=== PATIENT | female | born 1980 | race Caucasian/White ===

== ENCOUNTER 2018-10-15 13:10 | Emergency (ER) | payer BC, OTHER ==
[2018-10-15] MEDS ORDERED: ONDANSETRON HCL INJ/PF 4 MG/2 ML SDV IV ONE ×2 (14:50→19:42)
--- NOTE | 2018-10-15 14:51 | ER Document Report ---
ED Medical Screen (RME) - General Chief Complaint: Abdominal Pain Stated Complaint: ABDOMINAL PAIN Time Seen by Provider: 10/15/18 14:49 Primary Care Provider: DIAZ MEZA [Primary Care Provider] - Follow up as needed Mode of Arrival: Medic Information source: Patient Notes: Patient presents complaining of left lower quadrant abdominal pain that radiates to the back for the past 2 days. Patient does complain of nausea. Patient denies any vomiting. Patient without any history of constipation. Patient states she has a history of intussusception which was not repaired surgically and states that her pain feels similar to when she had this in April of last year. I have greeted and performed a rapid initial assessment of this patient. A comprehensive ED assessment and evaluation of the patient, analysis of test results and completion of the medical decision making process will be conducted by additional ED providers. TRAVEL OUTSIDE OF THE [place] IN LAST 30 DAYS: No - Related Data Allergies/Adverse Reactions: Sulfa (Sulfonamide Antibiotics) Allergy (Verified 10/15/18 13:12) Physical Exam - Vital signs Vitals: Temp Pulse Resp BP Pulse Ox 98.8 F 92 16 127/80 H 99 10/15/18 13:29 10/15/18 13:29 10/15/18 13:29 10/15/18 13:29 10/15/18 13:29 - Abdominal Tenderness: Tender - Left lower pelvic tenderness Course - Vital Signs Vital signs: Temp Pulse Resp BP Pulse Ox 98.8 F 92 16 127/80 H 99 10/15/18 13:29 10/15/18 13:29 10/15/18 13:29 10/15/18 13:29 10/15/18 13:29 Doctor's Discharge - Discharge Referrals: DIAZ MEZA [Primary Care Provider] - Follow up as needed
[2018-10-15] MEDS ORDERED: FENTANYL CITRATE INJ/PF 100 MCG/2 ML AMPUL IV ONE ×2 (15:13→19:24)
[2018-10-15 15:46] LABS: ABSOLUTE BASOPHILS # (AUTO) 0.1 10^3/uL (0.0-0.2); ABSOLUTE LYMPHOCYTES (AUTO) 1.6 10^3/uL (0.5-4.7); ABSOLUTE MONOCYTES (AUTO) 0.4 10^3/uL (0.1-1.4); ABSOLUTE NEUT (AUTO) 5.9 10^3/uL (1.7-8.2); BASOPHILS % (AUTO) 0.9 % (0-2); EOSINOPHILS % (AUTO) 0.2 % (0-6); HEMATOCRIT 39.5 % (36.0-47.0); HEMOGLOBIN 13.5 g/dL (12.0-15.5); LYMPHOCYTES % (AUTO) 20.1 % (13-45); MEAN CORPUSCULAR HGB CONC 34.2 g/dL (32.0-36.0); MEAN CORPUSCULAR VOLUME 82 fl (80-97); MONOCYTES % (AUTO) 4.7 % (3-13); PLATELET COUNT 236 10^3/uL (150-450); RED BLOOD COUNT 4.81 10^6/uL (3.72-5.28); SEGMENTED NEUTROPHILS % (AUTO) 74.1 % (42-78); TOTAL CELLS COUNTED % (AUTO) 100 %
[2018-10-15 16:09] LABS: ALANINE AMINOTRANSFERASE 22 U/L (9-52); ALBUMIN 4.5 g/dL (3.5-5.0); ALKALINE PHOSPHATASE 66 U/L (38-126); ANION GAP 13 (5-19); ASPARTATE AMINO TRANSFERASE 19 U/L (14-36); BILIRUBIN,DIRECT 0.2 mg/dL (0.0-0.4); BILIRUBIN,TOTAL 0.8 mg/dL (0.2-1.3); BLOOD UREA NITROGEN 11 mg/dL (7-20); CALCIUM 9.6 mg/dL (8.4-10.2); CARBON DIOXIDE 25 mmol/L (22-30); CHLORIDE 102 mmol/L (98-107); GLUCOSE 83 mg/dL (75-110); LIPASE 65.6 U/L (23-300); POTASSIUM 4.2 mmol/L (3.6-5.0); SODIUM 140.1 mmol/L (137-145); TOTAL PROTEIN 7.6 g/dL (6.3-8.2)
[2018-10-15 17:24] LABS: APPEARANCE,URINE SLIGHTLY-CLOUDY; BILIRUBIN,URINE NEGATIVE (NEGATIVE); COLOR,URINE YELLOW; GLUCOSE, URINE NEGATIVE (NEGATIVE); KETONES,URINE 80 mg/dL (NEGATIVE); LEUKOCYTE ESTERASE,URINE NEGATIVE (NEGATIVE); NITRITE,URINE NEGATIVE (NEGATIVE); PROTEIN,URINE NEGATIVE (NEGATIVE); URINE SPECIFIC GRAVITY 1.025; UROBILINOGEN,URINE NEGATIVE mg/dL (<2.0)
[2018-10-15] MEDS ORDERED: NORMAL SALINE 1000 ML 1,000 ML IV ONE (17:35)
--- NOTE | 2018-10-15 19:03 | RADIOLOGY REPORT (SQ) ---
EXAM DESCRIPTION: U/S NON OB PEL TV W/DOPPLER COMPLETED DATE/TIME: 10/15/2018 6:41 pm REASON FOR STUDY: LLQ pain COMPARISON: None. TECHNIQUE: Dynamic and static grayscale images acquired of the pelvis via transvaginal approach and recorded on PACS. Additional selected color Doppler and spectral images recorded. LIMITATIONS: None. FINDINGS: UTERUS: Contour normal. No mass. ENDOMETRIAL STRIPE: No focal or generalized thickening. No masses. CERVIX: There is the appearance of a 10 mm solid nodule in the cervix. Nabothian cysts are present. RIGHT OVARY AND DOPPLER: Normal size. No worrisome masses. Normal arterial vascular flow without evid ence for torsion. 13 mm cyst. LEFT OVARY AND DOPPLER: Normal size. No worrisome masses. Normal arterial vascular flow without evide nce for torsion. FREE FLUID: None noted. OTHER: No other significant finding. MEASUREMENTS: UTERUS: 9.1 x 5.4 x 4.3 cm. ENDOMETRIAL STRIPE: 1.4 cm RIGHT OVARY: 2.5 x 1.8 x 2.3 cm LEFT OVARY: 3.3 x 2.0 x 2.0 cm IMPRESSION: There is a 10 mm solid nodule in the cervix in addition to a couple of nabothian cysts. TECHNICAL DOCUMENTATION: JOB ID: [id number] [employer]- All Rights Reserved Rev-11/06 Reading location - IP/workstation name: [email or web address]
--- NOTE | 2018-10-15 19:26 | ER Document Report ---
ED General - General Chief Complaint: Abdominal Pain Stated Complaint: ABDOMINAL PAIN Time Seen by Provider: 10/15/18 14:49 Primary Care Provider: DIAZ MEZA [NO LOCAL MD] - Follow up as needed Mode of Arrival: Medic Information source: Patient Notes: This is a 38-year-old female with a long history of IBS, reports an episode of intussusception last year in [place] who presents to the emergency room with left lower abdominal pain. Patient does state she recently started probiotic gummy bears and feels that it irritated her stomach. She denies any fever. Patient does state that she has had a lot of carbonated drinks and soda lately. She does state that she in the past he has had a lot of bloating from carbonated drinks. She is followed by a GI doctor in [place] and is scheduled for an EGD and colonoscopy on November 10. Patient states she also has a follow-up appointment with her [employer] doctor. TRAVEL OUTSIDE OF THE [place] IN LAST 30 DAYS: No - HPI Onset: Last week Onset/Duration: Gradual Quality of pain: Dull Severity: Moderate Pain Level: 2 Associated symptoms: Nausea. denies: Chest pain, Shortness of breath Exacerbated by: Denies Relieved by: Denies Similar symptoms previously: Yes Recently seen / treated by doctor: Yes - Related Data Allergies/Adverse Reactions: Sulfa (Sulfonamide Antibiotics) Allergy (Verified 10/15/18 13:12) Past Medical History - General Information source: Patient - Social History Smoking Status: Never Smoker Cigarette use (# per day): No Chew tobacco use (# tins/day): No Frequency of alcohol use: Social Drug Abuse: None Lives with: Family Family History: None Patient has suicidal ideation: No Patient has homicidal ideation: No - Past Medical History Cardiac Medical History: Reports: None Pulmonary Medical History: Reports: None EENT Medical History: Reports: None Neurological Medical History: Reports: None Endocrine Medical History: Reports: None Renal/ Medical History: Reports: None. Denies: Hx Peritoneal Dialysis Malignancy Medical History: Reports: None GI Medical History: Reports: Hx Irritable Bowel Musculoskeletal Medical History: Reports None Skin Medical History: Reports None Psychiatric Medical History: Reports: None Traumatic Medical History: Reports: None Infectious Medical History: Reports: None Surgical Hx: Negative Review of Systems - Review of Systems Constitutional: denies: Chills, Fever EENT: No symptoms reported Cardiovascular: No symptoms reported Respiratory: No symptoms reported Gastrointestinal: See HPI, Abdomen distended, Abdominal pain, Constipation. denies: Diarrhea Genitourinary: No symptoms reported Female Genitourinary: No symptoms reported Musculoskeletal: No symptoms reported Skin: No symptoms reported Hematologic/Lymphatic: No symptoms reported Neurological/Psychological: No symptoms reported Physical Exam - Vital signs Vitals: Temp Pulse Resp BP Pulse Ox 98.8 F 92 16 127/80 H 99 10/15/18 13:29 10/15/18 13:29 10/15/18 13:29 10/15/18 13:29 10/15/18 13:29 Notes: Physical exam: GENERAL: Patient is alert and oriented x3, no acute distress. She does appear anxious. HEAD: Atraumatic, normocephalic. EYES: Pupils equal round and reactive to light, extraocular movements intact, sclera anicteric, conjunctiva are normal. ENT: TMs normal, nares patent, oropharynx clear without exudates. Moist mucous membranes. NECK: Normal range of motion, supple without obvious mass or JVD. LUNGS: Breath sounds clear to auscultation bilaterally and equal. No wheezes rales or rhonchi. HEART: Regular rate and rhythm without murmurs, rubs or gallops. ABDOMEN: Soft, normoactive bowel sounds. Mild tenderness in the left lower quadrant. No guarding, no rebound. No masses appreciated. Patient has no tenderness on the right side of the abdomen or over the pelvis. EXTREMITIES: Normal range of motion, no pitting or edema. No clubbing or cyanosis. NEUROLOGICAL: Cranial nerves II through XII grossly intact. Normal speech, moving all extremities. PSYCH: Normal mood, normal affect. SKIN: Warm, Dry, normal turgor, no rashes or lesions noted. Course - Re-evaluation Re-evalutation: 10/16/18 02:45 I discussed the results of the cervical nodule on ultrasound as well as a CT scan. I have advised her to follow-up with the geologist when back home. She already has an appointment with her GI doctor. - Vital Signs Vital signs: Temp Pulse Resp BP Pulse Ox 98.5 F 87 18 117/65 99 10/15/18 23:57 10/15/18 23:57 10/15/18 23:57 10/15/18 23:57 10/15/18 23:57 - Laboratory Result Diagrams: 10/15/18 15:14 10/15/18 15:14 Laboratory results interpreted by me: 10/15/18 16:42 Urine Ketones 80 H Urine Blood SMALL H - Diagnostic Test Radiology reviewed: Image reviewed, Reports reviewed - CT of the abdomen and pelvis shows no intra-terminal pathology. Ultrasound of the pelvis shows nabothian cysts as well as a cervical nodule. Discharge - Discharge Clinical Impression: Abdominal pain Condition: Stable Disposition: HOME, SELF-CARE Additional Instructions: The ultrasound showed some nabothian cysts which are fairly common. There was a small nodule on the cervix which you should follow-up with your [employer] doctor when back in [place]. Bring a copy of today's ultrasound with you when you see your geologist. Regarding the abdominal pain. As we discussed, the CT of the abdomen showed no evidence of inflammation or bowel obstruction. I do want you to take it easy over the next few days. Drink plenty of fluids: Try to avoid carbonated drinks. Take ibuprofen for pain. Take the Percocet for pain not relieved with the ibuprofen. Take the Zofran for nausea if taking the Percocet. Follow-up with your doctor in [place]'s plan for the colonoscopy. A copy of today's test with you. We did send a urine culture and then will take a few days to come back. Prescriptions: Ondansetron HCl [Zofran 4 mg Tablet] 1 - 2 tab PO Q4H PRN #10 tablet PRN Reason: Oxycodone HCl/Acetaminophen [Percocet 5-325 mg Tablet] 1 tab PO ASDIR PRN #15 tablet PRN Reason: Referrals: LOCALMD,NO [NO LOCAL MD] - Follow up as needed
--- NOTE | 2018-10-15 22:01 | RADIOLOGY REPORT (SQ) ---
EXAM DESCRIPTION: CT ABDOMEN PELVIS WITH IV CONTRAST COMPLETED DATE/TME: 10/15/2018 00:00 CLINICAL HISTORY: 38 years, Female, LLQ pain, hx intussusception COMPARISON: None. TECHNIQUE: Contrast enhanced CT of the abdomen/pelvis was performed. Coronal and sagittal reformations were created. Images stored on PACS. All CT scanners at this facility use dose modulation, iterative reconstruction, and/or weight based dosing when appropriate to reduce radiation dose to as low as reasonably achievable (ALARA). [facility]: Dose Right [facility]: CareDose [facility]: Dose Right [facility]: Teradose 4D [facility]: UnboundID LIMITATIONS: None. FINDINGS: Limited evaluation of the lower chest reveals clear lung bases. The liver, spleen, pancreas, gallbladder, and both adrenal glands appear normal. Both kidneys enhance symmetrically. There is no hydronephrosis or hydroureter. The urinary bladder is well distended and shows no suspicious finding. The uterus and both ovaries show no suspicious abnormality. A small amount of free fluid layers dependently within the pelvis, likely physiologic. The small and large bowel appear normal in caliber without areas of focal wall thickening. No evidence of bowel obstruction. The appendix is not well visualized; however, no pericecal inflammatory changes are appreciated. Vascular structures opacify with contrast normally. No suspicious lymphadenopathy or drainable fluid collections are appreciated. Bone windows show no destructive osseous lesions. IMPRESSION: No acute abnormality within the abdomen or pelvis. TECHNICAL DOCUMENTATION: Quality ID # [id number]: Final reports with documentation of one or more dose reduction techniques (e.g., Automated exposure control, adjustment of the mA and/or kV according to patient size, use of iterative reconstruction technique) copyright 2010 [employer]- All Rights Reserved
[2018-10-15] MEDS ORDERED: ONDANSETRON ODT 4 MG TAB (6 TAB/ER DISP) PO PRN (23:42)
[2018-10-16 00:01] VITALS: BP 117/65
== END 2018-10-16 00:02 | disposition home or self-care (01) ==
LOC: ER 13:10
DX: R10.9 Unspecified abdominal pain (principal); R14.0 Abdominal distension (gaseous); K59.00 Constipation, unspecified; R11.0 Nausea; Z88.2 Allergy status to sulfonamides
CPT/HCPCS: 96376; 99284; 96361; 96374; 96375; 36415; 87086; 83690; 84703; 85025; 80053; 81001; 76830; 93976; 74177; J3010; J2405; J7030